=== PATIENT | male | born 1950 | race Two or more races ===

== ENCOUNTER 2017-07-27 15:45 | Inpatient (IN) | payer MEDICARE, MEDICAID ==
[~2017-07-27] VITALS: Ht 170.2 cm; Wt 82.1 kg
--- NOTE | 2017-07-27 15:45 | Emergency Room Report ---
History of Present Illness General Source: Patient, EMS Present Illness HPI Patient is a 67-year-old male sent in by Dr. Cardoso after increased bilateral lower extremity swelling for the past 2 days. The patient gradual onset of symptoms. The patient stays at [facility]. The patient was noted to have prior history of CVA. Patient reports being able to move both lower extremities. He noticed having no increased difficulty breathing. Patient states that he is able to breathe normally. The patient prior history of tracheostomy but this had been removed. The patient also had prior history of G-tube which had been removed. The patient is awake and alert Allergies: Coded Allergies: EPINEPHRINE (Verified Allergy, Mild, 12/23/09) Patient History Past Medical History: see triage record, CVA/TIA, renal disease Past Surgical History: pacemaker Reviewed Nursing Documentation: PMH: Agreed, PSxH: Agreed Review of Systems All Other Systems: negative except mentioned in HPI Physical Exam Sp02 EP Interpretation: reviewed, normal General Appearance: normal inspection, well appearing, no apparent distress, alert, GCS 15 Head: atraumatic ENT: normal ENT inspection, hearing grossly normal, normal voice Neck: normal inspection, full range of motion, supple, no bony tend Respiratory: normal inspection, normal breath sounds, no respiratory distress, no retraction, crackles - bibasilar Cardiovascular #1: regular rate, rhythm Gastrointestinal: normal inspection, normal bowel sounds, non tender, soft, no guarding, no hernia Genitourinary: no CVA tenderness Musculoskeletal: normal inspection, back normal, normal range of motion Neurologic: normal inspection, alert, oriented x3, responsive, yarn weigher III-XII nml as tested, speech normal, motor weakness - bilateral lower extremity, plantar flexed, able to move both legs against gravity, left arm slight weakness Psychiatric: normal inspection, judgement/insight normal, mood/affect normal Skin: normal inspection, other - bilateral pedal edema, Medical Decision Making Diagnostic Impression: Primary Impression: Congestive heart failure (CHF) ER Course Patient presented for lower extremity edema. Differential diagnosis included was not limited to renal failure, allergic reaction, congestive heart failure, deep venous thrombosis among others.Because of complexity of patient's case laboratory testing and imaging studies were ordered.The patient was noted to be in no respiratory distress. Laboratory testing was notable for elevated BNP. Ekg showed paced rhythm without acute ST or T changes. The patient was given IV Lasix. Dr. Colin Calle was contacted for inpatient management due to primary care physician coverage. Labs Test 07/27/17 16:12 White Blood Count 8.8 K/UL (4.8-10.8) Red Blood Count 3.57 M/UL (4.70-6.10) Hemoglobin 10.5 G/DL (14.2-18.0) Hematocrit 32.8 % (42.0-52.0) Mean Corpuscular Volume 92 FL (80-99) Mean Corpuscular Hemoglobin 29.5 PG (27.0-31.0) Mean Corpuscular Hemoglobin Concent 32.1 G/DL (32.0-36.0) Red Cell Distribution Width 11.8 % (11.6-14.8) Platelet Count 227 K/UL (150-450) Mean Platelet Volume 7.4 FL (6.5-10.1) Neutrophils (%) (Auto) 52.5 % (45.0-75.0) Lymphocytes (%) (Auto) 21.3 % (20.0-45.0) Monocytes (%) (Auto) 8.8 % (1.0-10.0) Eosinophils (%) (Auto) 15.8 % (0.0-3.0) Basophils (%) (Auto) 1.6 % (0.0-2.0) Sodium Level 143 MMOL/L (136-145) Potassium Level 4.0 MMOL/L (3.5-5.1) Chloride Level 110 MMOL/L (98-107) Carbon Dioxide Level 25 MMOL/L (21-32) Anion Gap 8 mmol/L (5-15) Blood Urea Nitrogen 17 mg/dL (7-18) Creatinine 0.9 MG/DL (0.55-1.30) Estimat Glomerular Filtration Rate > 60 mL/min (>60) Glucose Level 70 MG/DL (74-106) Calcium Level 8.3 MG/DL (8.5-10.1) EKG Diagnostic Results Rhythm: other - av paced rhythm ST Segments: no acute changes Rhythm Strip Diag. Results EP Interpretation: yes Rhythm: no PVC's, no ectopy, other - paced rhythm Status: unchanged Disposition: ADMITTED INPATIENT Condition: Serious Isaac Moreno Jul 27, 2017 15:45
[2017-07-27 15:53] VITALS: BP 166/76
[2017-07-27 16:26] LABS: BASOPHILS % (AUTO) 1.6 % (0.0-2.0); EOSINOPHILS % (AUTO) 15.8 % (0.0-3.0); LYMPHOCYTES % (AUTO) 21.3 % (20.0-45.0); MEAN CORPUSCULAR HEMOGLOBIN 29.5 PG (27.0-31.0); MEAN CORPUSCULAR HGB CONC 32.1 G/DL (32.0-36.0); MEAN CORPUSCULAR VOLUME 92 FL (80-99); MEAN PLATELET VOLUME 7.4 FL (6.5-10.1); MONOCYTES % (AUTO) 8.8 % (1.0-10.0); NEUTROPHILS % (AUTO) 52.5 % (45.0-75.0); PLATELET COUNT 227 K/UL (150-450); RED BLOOD COUNT 3.57 M/UL (4.70-6.10); RED CELL DISTRIBUTION WIDTH 11.8 % (11.6-14.8); WHITE BLOOD COUNT 8.8 K/UL (4.8-10.8)
[2017-07-27 16:39] LABS: ANION GAP 8 mmol/L (5-15); CALCIUM 8.3 MG/DL (8.5-10.1); CARBON DIOXIDE 25 MMOL/L (21-32); CHLORIDE 110 MMOL/L (98-107); CREATININE 0.9 MG/DL (0.55-1.30); GLOMERULAR FILTRATION RATE > 60 mL/min (>60); SODIUM 143 MMOL/L (136-145)
[2017-07-27 16:50] LABS: ALANINE AMINOTRANSFERASE 17 U/L (12-78); ALBUMIN/GLOBULIN RATIO 0.9 (1.0-2.7); ASPARTATE AMINO TRANSFERASE 14 U/L (15-37); TOTAL PROTEIN 6.1 G/DL (6.4-8.2)
[2017-07-27 16:54] LABS: APPEARANCE,URINE CLEAR; KETONES,URINE NEGATIVE (NEGATIVE); LEUKOCYTE ESTERASE ,URINE 1+ (NEGATIVE); NITRITE,URINE NEGATIVE (NEGATIVE); PH,URINE 5 (4.5-8.0); PROTEIN,URINE NEGATIVE (NEGATIVE); UROBILINOGEN,URINE NORMAL MG/DL (0.0-1.0)
[2017-07-27 17:32] LABS: BACTERIA,URINE FEW /HPF; RBC,URINE 0-2 /HPF (0 - 0); SQUAMOUS EPITHELIAL CELL,UR OCCASIONAL /LPF (NONE/OCC); WBC,URINE 0-2 /HPF (0 - 0)
[2017-07-27] MEDS ORDERED: TYLENOL650 MG/20. ORAL (17:55)
[2017-07-27] MEDS ORDERED: LIPITOR80 MG ORAL (17:57)
[2017-07-27] MEDS ORDERED: CALCIUM 500 +1 EAC7 PO (18:08)
[2017-07-27] MEDS ORDERED: PROSCAR5 MG ORAL (18:09)
[2017-07-27] MEDS ORDERED: MULTIVITAMINS1 EAC8 ORAL (18:10)
[2017-07-27] MEDS ORDERED: TAMSULOSIN HCL0.4 MG ORAL (18:18)
[2017-07-27] MEDS ORDERED: MILK OF MA400 MG/51 ORAL (18:18)
[2017-07-27] MEDS ORDERED: SENNA8.6 M2 PO (18:18)
[2017-07-27 18:40] VITALS: BP 142/77
[2017-07-27] MEDS ORDERED: FAMOTIDINE40 MG ORAL (18:46)
[2017-07-27] MEDS ORDERED: GABAPENTIN100 MG ORAL (18:46)
[2017-07-27] MEDS ORDERED: NORCO 10-325 T1 EACH ORAL (18:46)
[2017-07-27] MEDS ORDERED: AMIODARONE HCL200 MG ORAL (18:46)
[2017-07-27] MEDS ORDERED: ECPIRIN325 M1 PO (18:46)
[2017-07-27] MEDS ORDERED: COZAAR100 MG ORAL (18:46)
[2017-07-27] MEDS ORDERED: NORVASC5 MG ORAL (18:46)
[2017-07-27] MEDS ORDERED: TRADJENTA5 MG PO (18:46)
[2017-07-27] MEDS ORDERED: FLUTICASONE PRO16 G1 NASAL (18:46)
[2017-07-27] MEDS ORDERED: PLAVIX75 MG ORAL (18:46)
[2017-07-27] MEDS ORDERED: LANTUS SOL100 UNIT/1 SUBQ (18:55)
[2017-07-27] MEDS ORDERED: FUROSEMIDE40 MG/4 ML IV (18:55)
[2017-07-27 20:00] VITALS: BP 155/84
[2017-07-27] MEDS: NovoLOG Insulin Flexpen SUBQ SCH (20:53)
[2017-07-27] MEDS ORDERED: Milk of Magnesia 30ml Ud ORAL PRN (22:30)
[2017-07-27] MEDS ORDERED: Tylenol #3 tab (300mg/30mg) ORAL PRN (22:30)
[2017-07-28] MEDS: NovoLOG Insulin Flexpen SUBQ SCH ×4 (06:27→21:00)
[2017-07-28 08:00] VITALS: BP 158/72
[2017-07-28] MEDS: Tamsulosin 0.4mg cap ORAL SCH ×2 (08:28→17:06)
[2017-07-28] MEDS ORDERED: Norco 10mg/325mg tab ORAL PRN (08:30)
[2017-07-28] MEDS: Amiodarone 200mg tab ORAL SCH (08:31)
[2017-07-28] MEDS: Calcium Carbonate 500mg w/Vit D 200iu tab ORAL SCH (08:31)
[2017-07-28] MEDS: Losartan 50mg tab ORAL SCH (08:31)
[2017-07-28] MEDS: Flonase Nasal Inhaler 16gm NASAL SCH ×2 (08:33→17:06)
[2017-07-28] MEDS: Heparin 5000 units/ml inj SUBQ SCH ×2 (08:33→21:00)
[2017-07-28 12:00] VITALS: BP 145/71
--- NOTE | 2017-07-28 15:30 | History and Physical Report ---
DATE OF ADMISSION: 07/27/2017 CHIEF COMPLAINT: Lower extremity edema. HISTORY OF PRESENT ILLNESS: The patient is a 67-year-old male. He has a history of conduction system disease, status post pacemaker, hypertension, congestive heart failure, and diabetes, who was transferred from a shelter facility with complaints of lower extremity edema. According to the patient, he has had two days of worsening lower extremity edema. He states that he has had similar symptoms in the past and it usually responds with elevation of his lower extremities. Denies any fevers or chills. He has had no cough. He does admit to some dietary salt noncompliance, especially with Thanksgiving. Denies any orthopnea or PND. He has no chest pain. On evaluation in the emergency room, the patient was noted to have swollen legs. He also did have elevated troponin. He was therefore admitted for further evaluation and care. PAST MEDICAL HISTORY: As above. PAST SURGICAL HISTORY: None. CURRENT MEDICATIONS: Reconciled and reviewed. ALLERGIES: Epinephrine. SOCIAL HISTORY: There is no known history of tobacco, ethanol, or drugs. FAMILY HISTORY: Noncontributory. REVIEW OF SYSTEMS: GENERAL: No fevers or chills. HEENT: No headaches or visual changes. CARDIOPULMONARY: No chest pain or shortness of breath. GASTROINTESTINAL: No nausea or vomiting. GENITOURINARY: No urgency or frequency. MUSCULOSKELETAL: No joint pain or swelling. NEUROLOGIC: No evidence of seizures. PHYSICAL EXAMINATION: VITAL SIGNS: Temperature 98 degrees, blood pressure 158/72, pulse 62, and respirations 14. GENERAL: The patient is well developed, in no apparent distress. HEART: Regular rate and rhythm. LUNGS: Clear. ABDOMEN: Soft, nontender, and nondistended. There is no jugular venous distention. EXTREMITIES: Without clubbing, cyanosis, or edema. LABORATORY DATA: Sodium 143, potassium was 4, and creatinine was 0.9. Troponin 0.119. Natriuretic peptide level was 3000. UA was clear. White count 8 and hemoglobin was 10. ASSESSMENT: This is a pleasant male, who complaints of lower extremity edema, suspect secondary to venous insufficiency. He also has elevated troponin. He has hypertension and diabetes. PLAN: Repeat troponin. Continue anti-platelet therapy. Discontinue IV Lasix as edema has now improved. If troponin is negative, the patient likely can be discharged home. I suspect if the repeat troponin is elevated, he will need to be kept as an inpatient. He will have an echo and see dental equipment installer and servicer. We will continue outpatient diabetic and cardiac regimen. Colin Calle M.D. DR: Jakub JOB#: [id number] CC:
[2017-07-28 16:00] VITALS: BP 131/67
[2017-07-28 19:28] VITALS: BP 122/70
[2017-07-28] MEDS: Atorvastatin 80mg tab ORAL SCH (21:00)
[2017-07-28] MEDS: Sennosides 8.6mg ORAL SCH (21:00)
[2017-07-28 23:20] VITALS: BP 142/77
[2017-07-29 03:23] VITALS: BP 142/75
[2017-07-29] MEDS: NovoLOG Insulin Flexpen SUBQ SCH ×4 (06:30→21:00)
[2017-07-29 08:28] VITALS: BP 131/70
[2017-07-29] MEDS: Sennosides 8.6mg ORAL SCH (09:00)
[2017-07-29] MEDS: Flonase Nasal Inhaler 16gm NASAL SCH ×2 (09:00→17:25)
[2017-07-29] MEDS: Amiodarone 200mg tab ORAL SCH (09:00)
[2017-07-29] MEDS: Tamsulosin 0.4mg cap ORAL SCH ×2 (09:01→17:25)
[2017-07-29] MEDS: Calcium Carbonate 500mg w/Vit D 200iu tab ORAL SCH (09:01)
[2017-07-29] MEDS: Losartan 50mg tab ORAL SCH (09:02)
[2017-07-29] MEDS: Heparin 5000 units/ml inj SUBQ SCH ×2 (09:03→20:47)
[2017-07-29 12:27] VITALS: BP 159/72
--- NOTE | 2017-07-29 13:01 | General Progress Note ---
Assessment/Plan Problem List: (1) Hypertension ICD Codes: I10 - Essential (primary) hypertension SNOMED: 15598536 (2) AMI (acute myocardial infarction) ICD Codes: I21.9 - Acute myocardial infarction, unspecified SNOMED: 85667077 (3) Venous insufficiency ICD Codes: I87.2 - Venous insufficiency (chronic) (peripheral) SNOMED: 24817407 (4) Congestive heart failure (CHF) ICD Codes: I50.9 - Heart failure, unspecified SNOMED: 41412010 Status: stable, progressing Assessment/Plan po diuretic rx arb antiplt rx cards eval pending Subjective ROS Limited/Unobtainable: No Constitutional: Reports: weakness HEENT: Reports: no symptoms Cardiovascular: Reports: edema Respiratory: Reports: no symptoms Gastrointestinal/Abdominal: Reports: no symptoms Genitourinary: Reports: no symptoms Neurologic/Psychiatric: Reports: no symptoms Endocrine: Reports: no symptoms Hematologic/Lymphatic: Reports: no symptoms Allergies: Coded Allergies: EPINEPHRINE (Verified Allergy, Mild, 12/23/09) All Systems: reviewed and negative except above Subjective no complaints. LE edema better. +trop x 2. denies CP/sob. echo with low ef 45% Objective Last 24 Hour Vital Signs Date Time Temp Pulse Resp B/P (MAP) Pulse Ox O2 Delivery O2 Flow Rate FiO2 07/29/17 12:27 98.1 60 18 159/72 98 Room Air 07/29/17 09:02 131/70 07/29/17 08:28 98.6 69 18 131/70 97 Room Air 07/29/17 08:00 67 07/29/17 04:00 65 07/29/17 03:23 98.3 62 16 142/75 96 Room Air 07/29/17 00:00 66 07/28/17 23:20 98.2 73 16 142/77 96 Room Air 07/28/17 20:00 67 07/28/17 19:28 98.0 71 16 122/70 97 Room Air 07/28/17 16:00 67 07/28/17 16:00 98.2 68 16 131/67 95 Room Air Intake and Output 07/29/17 07/30/17 19:00 07:00 Intake Total 360 ml Output Total 400 ml Balance -40 ml Intake Oral 360 ml Output Urine Total 400 ml # Bowel Movements 1 Height (Feet): 5 Height (Inches): 7.00 Weight (Pounds): 182 General Appearance: WD/WN, alert Neck: supple Cardiovascular: regular rhythm Respiratory/Chest: chest wall non-tender, lungs clear, normal breath sounds, no respiratory distress Abdomen: normal bowel sounds, non tender, soft, no organomegaly, no mass Edema: no edema noted Arm (L), no edema noted Arm (R), no edema noted Leg (L), no edema noted Leg (R), no edema noted Pedal (L), no edema noted Pedal (R), no edema noted Generalized JOÃO LANDEROS Jul 29, 2017 13:01
--- NOTE | 2017-07-29 15:02 | Cardiology Report ---
APPROVED REPORT EXAM: Two-dimensional and M-mode echocardiogram with Doppler and color Doppler. INDICATION Coronary artery disease M-Mode DIMENSIONS IVSd1.3 (0.7-1.1cm)Left Atrium (MM)3.7 (1.6-4.0cm) LVDd4.8 (3.5-5.6cm)Aortic Root2.8 (2.0-3.7cm) PWd1.0 (0.7-1.1cm)Aortic Cusp Exc.1.6 (1.5-2.0cm) LVDs3.7 (2.5-4.0cm) PWs1.2 cm Technically difficult study due to poor parasternal acoustical windows. Study quality precludes accurate assessment of regional wall motion. Normal left ventricular chamber size and fucntion to the exten visulaized Left ventricular ejection fraction estimated to be 50-55%. Mild left ventricular hypertrophy. Anterior Echo-free space, may be due to pericardial fat or effusion. All other cardiac chamber sizes are within normal limits. Focal aortic valve sclerosis with adequate cusp excursion. Thickened mitral valve leaflets with normal excursion. Mild mitral annulus and aortic root calcification. Pulmonic valve not well visualized. Normal tricuspid valve structure. IVC dilated at 2.2 cm and with partial physiologic collapse, estimated RAP is 10 mmHg. A color flow and spectral Doppler study was performed and revealed: No aortic regurgitation. Trace mitral regurgitation. Mitral diastolic velocities suggest reduced left ventricular relaxation c/w mild diastolic dysfunction (Grade I). Mild tricuspid regurgitation. Tricuspid systolic velocities suggests peak right ventricular systolic pressure of 44 mmHg, consistent with mild to moderate pulmonary hypertension. No pulmonic regurgitation present.
--- NOTE | 2017-07-29 15:34 | Cardiology Report ---
APPROVED REPORT EKG Measurement Heart [id number] MI 158P4 [id number] av sequential pacing
[2017-07-29 16:15] VITALS: BP 141/77
--- NOTE | 2017-07-29 17:31 | Cardiology Progress Note ---
Assessment/Plan Assessment/Plan The patient is seen and examined, full consult note is dictated. Objective Last 24 Hour Vital Signs Date Time Temp Pulse Resp B/P (MAP) Pulse Ox O2 Delivery O2 Flow Rate FiO2 07/29/17 16:15 98.6 67 18 141/77 98 Room Air 07/29/17 12:27 98.1 60 18 159/72 98 Room Air 07/29/17 12:00 65 07/29/17 09:02 131/70 07/29/17 08:28 98.6 69 18 131/70 97 Room Air 07/29/17 08:00 67 07/29/17 04:00 65 07/29/17 03:23 98.3 62 16 142/75 96 Room Air 07/29/17 00:00 66 07/28/17 23:20 98.2 73 16 142/77 96 Room Air 07/28/17 20:00 67 07/28/17 19:28 98.0 71 16 122/70 97 Room Air Intake and Output 07/29/17 07/30/17 19:00 07:00 Intake Total 720 ml Output Total 700 ml Balance 20 ml Intake Oral 720 ml Output Urine Total 700 ml # Bowel Movements 1 Microbiology Date/Time Source Procedure Growth Status 07/28/17 01:00 Nasal Nares MRSA Culture - Final Staphylococcus Aureus - Mrsa Complete GILBERT FIELDS Jul 29, 2017 17:31
--- NOTE | 2017-07-29 19:30 | Consultation ---
DATE OF CONSULTATION: 07/29/2017 CARDIOLOGY CONSULTATION CONSULTING PHYSICIAN: Joaquin Leon M.D. REFERRING PHYSICIAN: Colin Calle M.D. ADDITIONAL REFERRING PHYSICIAN: Joaquin Stone M.D. HISTORY OF PRESENT ILLNESS: The patient is an very unfortunate 67-year-old gentleman, who presents to the hospital with increased bilateral lower extremity edema for about two days. The patient claims that he had been taking self a couple days prior to this event. He states that the onset of the symptoms were gradual. He did not have any shortness of breath or chest pain at the time of arrival to the hospital. Initial vital signs were showing blood pressure 166/76 mmHg and heart rate of 62 beats per minute. The patient seen in Cardiology consultation for evaluation of possible acute heart failure, has etiology of bilateral lower extremity edema. His cardiac history is significant for history of dual-chamber pacemaker implantation, Bertha Jansen in Electrophysiology has been consulted for management of pacemaker. His cardiac history, he has history of cerebrovascular accident with left hemiparesis but denies any history of arrhythmias in the past. He denied any prior history of coronary artery disease. PAST MEDICAL HISTORY: 1. CVA with left hemiparesis. 2. History of renal disease. 3. History of respiratory failure status post tracheostomy tube placement and removal. 4. History of dysphagia, status post PEG placement and removal. 5. History of paroxysmal atrial fibrillation on combination of aspirin and Plavix. PAST SURGICAL HISTORY: 1. History of tracheostomy tube placement. 2. History of PEG placement. 3. Dual-chamber pacemaker implantation. MEDICATIONS: List of medications at the nursing facility: 1. Acetaminophen 650 mg q.4 h. p.r.n. headache or temperature above 101. 2. Amiodarone 200 mg p.o. daily. 3. Amlodipine 5 mg p.o. daily. 4. Aspirin 325 mg p.o. daily. 5. Lipitor 20 mg p.o. daily. 6. Calcium carbonate/vitamin D3 one tablet daily. 7. Clopidogrel 75 mg p.o. daily. 8. Famotidine 40 mg p.o. at bedtime. 9. Proscar 5 mg p.o. daily. 10. Fluticasone propionate one spray nasal twice daily. 11. Furosemide 40 mg intravenous daily. 12. Gabapentin 300 mg three times daily. 13. [place] 10/325 one tablet q. 8 h hours p.r.n. pain. 14. Insulin Lantus 34 subcutaneous at bedtime. 15. Tradjenta 5 mg p.o. daily. 16. Cozaar 25 mg p.o. daily. 17. Milk of magnesia 30 mL p.o. daily p.r.n. constipation. 18. Multivitamin one tablet p.o. daily. 19. Senna 8.6 mg p.o. at bedtime. 20. Tamsulosin 0.4 mg twice daily. ALLERGIES: Epinephrine. SOCIAL HISTORY: Resident of [facility]. Denies any current tobacco, alcohol, or illicit drug use. REVIEW OF SYSTEMS: HEENT: Denies any headache, diplopia, or blurred vision. CONSTITUTIONAL: Denies any fever, chills, night sweats, or weight loss. CARDIOVASCULAR: Denies any chest pain, shortness of breath, PND, orthopnea, palpitations, syncope. Complaints of bilateral lower extremity edema. PULMONARY: Denies any cough, hemoptysis, or wheezing. GASTROINTESTINAL: Denies any nausea, vomiting, diarrhea, constipation, abdominal pain, or GI bleed. GENITOURINARY: Denies any hematuria, dysuria, or incontinence. NEUROLOGY: Some weakness in the left side of his body. No recent signs of lateralization. No slurred speech. PHYSICAL EXAMINATION: VITAL SIGNS: Blood pressure was 166/76, respirations 20, pulse of 62, temperature 98.2 degrees Fahrenheit, and O2 saturation 99% on room air. GENERAL: This is a very pleasant 67-year-old gentleman, in no apparent respiratory distress, alert and oriented x4. HEENT: Atraumatic and normocephalic. Anicteric. Pupils are equal, round, and reactive to light and accommodation. Extraocular muscles intact. NECK: JVP less than 5 cm. No carotid bruit. Carotid upstrokes 2+ bilaterally. CARDIOVASCULAR: Normal S1 and S2. Regular rate and rhythm. No murmurs, gallops, or rubs. PMI is at 4th intercostal space in the midclavicular line. LUNGS: Clear to auscultation bilaterally. CHEST: Presence of pacemaker in the left pectoral area. ABDOMEN: Soft, nontender, and nondistended. No hepatosplenomegaly. Positive bowel sounds. EXTREMITIES: No evidence of edema, clubbing, or cyanosis at this time. LABORATORY FINDINGS: Sodium was 143, potassium 4.0, chloride 110, carbon dioxide 25, BUN 17, creatinine 0.9, glucose is 70. Calcium is 8.3. Troponin-I 0.119 and 0.140. ProBNP was 2898. INR is 1.0. WBC 8.8, hemoglobin 10.5, hematocrit 32.8, platelet count is 227. Chest x-ray not available. A 2D echocardiography was reviewed and essentially shows normal left ventricular systolic function with LVEF approximately 55%. There is paradoxical septal wall motion, normal left ventricle wall thickening with paradoxical septal motion due to RV pacing resulting in overall left ventricular ejection fraction approximately 45%. There is mild pulmonary hypertension with right ventricular systolic pressure approximately 45 to 50 mmHg with [id number] diastolic data is significant for A to A reversal with normal E to E prime which is consistent with normal LV diastolic function. Right atrial pressure was also estimated at around 10 mmHg. ASSESSMENT AND PLAN: The patient is a pleasant 67-year-old gentleman, seen in Cardiology consultation at request of Dr. Calle and Bertha. 1. Bilateral lower extremity edema. Despite very high beta natriuretic peptide, I doubt that he has an active heart failure going on. A 2D echocardiography shows relatively normal LV systolic function with normal diastolic function. The patient is asymptomatic with no shortness of breath. I would agree however with the diuretic therapy which has resolved the lower extremity edema at this time. 2. Paroxysmal atrial fibrillation on amiodarone therapy mainly sequential AV pacing with occasional sinus rhythm. I would have Dr. Joaquin Stnoe to assess for anticoagulation and other arrhythmic management. 3. Dual-chamber pacemaker implantation, Dr. Stone, for pacemaker interrogation and function assessment. I would like to thank, Dr. Calle, for the courtesy of this consultation. Joaquin Leon M.D. DR: Keila JOB#: [id number] CC:
[2017-07-29] MEDS: Atorvastatin 80mg tab ORAL SCH (20:46)
[2017-07-29 20:47] VITALS: BP 133/67
[2017-07-30] VITALS: BP 139/67
[2017-07-30 04:00] VITALS: BP 135/74
[2017-07-30] MEDS: NovoLOG Insulin Flexpen SUBQ SCH ×4 (06:18→21:00)
[2017-07-30 08:16] VITALS: BP 148/77
--- NOTE | 2017-07-30 08:42 | General Progress Note ---
Assessment/Plan Problem List: (1) Hypertension ICD Codes: I10 - Essential (primary) hypertension SNOMED: 91619723 (2) AMI (acute myocardial infarction) ICD Codes: I21.9 - Acute myocardial infarction, unspecified SNOMED: 65035670 (3) Venous insufficiency ICD Codes: I87.2 - Venous insufficiency (chronic) (peripheral) SNOMED: 75904086 (4) Congestive heart failure (CHF) ICD Codes: I50.9 - Heart failure, unspecified SNOMED: 69567859 Status: stable, progressing Assessment/Plan po diuretic rx arb antiplt rx cards eval noted ?significance of elevated trop follow up cxr DC if cleared by cards Subjective ROS Limited/Unobtainable: No Constitutional: Reports: malaise, weakness HEENT: Reports: no symptoms Cardiovascular: Reports: edema Respiratory: Reports: no symptoms Gastrointestinal/Abdominal: Reports: no symptoms Genitourinary: Reports: no symptoms Neurologic/Psychiatric: Reports: no symptoms Endocrine: Reports: no symptoms Hematologic/Lymphatic: Reports: no symptoms Allergies: Coded Allergies: EPINEPHRINE (Verified Allergy, Mild, 12/23/09) All Systems: reviewed and negative except above Subjective no new complaints. edema better. echo noted. Objective Last 24 Hour Vital Signs Date Time Temp Pulse Resp B/P (MAP) Pulse Ox O2 Delivery O2 Flow Rate FiO2 07/30/17 08:16 98.4 61 20 148/77 96 07/30/17 04:00 65 07/30/17 04:00 97.9 67 20 135/74 96 Room Air 07/30/17 00:00 64 07/30/17 00:00 97.7 68 20 139/67 96 Room Air 07/29/17 20:47 98.2 62 20 133/67 96 Room Air 07/29/17 20:00 69 07/29/17 16:15 98.6 67 18 141/77 98 Room Air 07/29/17 12:27 98.1 60 18 159/72 98 Room Air 07/29/17 12:00 65 07/29/17 09:02 131/70 Height (Feet): 5 Height (Inches): 7.00 Weight (Pounds): 182 General Appearance: WD/WN, alert Neck: supple Cardiovascular: normal rate, regular rhythm Respiratory/Chest: chest wall non-tender, lungs clear, normal breath sounds Abdomen: normal bowel sounds, non tender, soft, no organomegaly Edema: no edema noted Arm (L), no edema noted Arm (R), no edema noted Leg (L), no edema noted Leg (R), no edema noted Pedal (L), no edema noted Pedal (R), no edema noted Generalized JOÃO LANDEROS Jul 30, 2017 08:42
[2017-07-30] MEDS: Flonase Nasal Inhaler 16gm NASAL SCH ×2 (09:04→18:02)
[2017-07-30] MEDS: Tamsulosin 0.4mg cap ORAL SCH ×2 (09:05→18:02)
[2017-07-30] MEDS: Calcium Carbonate 500mg w/Vit D 200iu tab ORAL SCH (09:05)
[2017-07-30] MEDS: Losartan 50mg tab ORAL SCH (09:06)
[2017-07-30] MEDS: Sennosides 8.6mg ORAL SCH (09:07)
[2017-07-30] MEDS: Amiodarone 200mg tab ORAL SCH (09:07)
[2017-07-30] MEDS: Heparin 5000 units/ml inj SUBQ SCH ×2 (09:08→21:01)
[2017-07-30 11:43] VITALS: BP 146/73
--- NOTE | 2017-07-30 15:10 | Diagnostic Imaging Report ---
Indication: SOB Technique: One view of the chest Comparison: 06/05/2005 Findings: Previously demonstrated tracheostomy is no longer evident. There is a left chest biventricular AICD present. The lungs and pleural spaces are clear. Heart size is upper limits of normal. Impression: No acute process
[2017-07-30 15:32] VITALS: BP 144/73
--- NOTE | 2017-07-30 18:52 | Cardiology Progress Note ---
Assessment/Plan Assessment/Plan 1. Bilateral lower extremity edema, resolved, continue the diuretics. Normal LV systolic and diastolic function except septal wall motion due to paced RV. 2. Paroxysmal atrial fibrillation on amiodarone therapy, sequential AV pacing with occasional sinus rhythm, continue amiodarone, ? antiocoag therapy. 3. Dual-chamber pacemaker implantation, appears to be functioning normally. Subjective Subjective Sinus rhythm at 62. No chest pain or SOB reported. Objective Last 24 Hour Vital Signs Date Time Temp Pulse Resp B/P (MAP) Pulse Ox O2 Delivery O2 Flow Rate FiO2 07/30/17 16:00 67 07/30/17 15:32 97.9 62 20 144/73 98 07/30/17 12:00 62 07/30/17 11:43 96.9 65 20 146/73 95 07/30/17 09:06 148/77 07/30/17 08:16 98.4 61 20 148/77 96 07/30/17 08:00 75 07/30/17 04:00 65 07/30/17 04:00 97.9 67 20 135/74 96 Room Air 07/30/17 00:00 64 07/30/17 00:00 97.7 68 20 139/67 96 Room Air 07/29/17 20:47 98.2 62 20 133/67 96 Room Air 07/29/17 20:00 69 Intake and Output 07/30/17 07/31/17 19:00 07:00 Intake Total 840 ml Output Total 700 ml Balance 140 ml Intake Oral 840 ml Output Urine Total 700 ml 2D Echo: LVEF 45%, paradoxical septal WM due to paced RV, RVSP 44, Grade I LVDD Microbiology Date/Time Source Procedure Growth Status 07/28/17 01:00 Nasal Nares MRSA Culture - Final Staphylococcus Aureus - Mrsa Complete 07/28/17 01:00 Rectum VRE Culture - Final NO VANCOMYCIN RESISTANT ENTEROCOCCUS ... Complete Objective HEENT: Atraumatic and normocephalic. Anicteric. Pupils are equal, round, and reactive to light and accommodation. Extraocular muscles intact. NECK: JVP less than 5 cm. No carotid bruit. Carotid upstrokes 2+ bilaterally. CARDIOVASCULAR: Normal S1 and S2. Regular rate and rhythm. No murmurs, gallops, or rubs. PMI is at 4th intercostal space in the midclavicular line. LUNGS: Clear to auscultation bilaterally. CHEST: Presence of pacemaker in the left pectoral area. ABDOMEN: Soft, nontender, and nondistended. No hepatosplenomegaly. Positive bowel sounds. EXTREMITIES: No evidence of edema, clubbing, or cyanosis at this time. GILBERT FIELDS Jul 30, 2017 18:52
[2017-07-30 20:00] VITALS: BP 147/68
[2017-07-30] MEDS: Atorvastatin 80mg tab ORAL SCH (20:57)
[2017-07-31] VITALS (7 sets, daily range): BP systolic 115–153; BP diastolic 60–82
[2017-07-31] MEDS: NovoLOG Insulin Flexpen SUBQ SCH ×4 (06:30→21:00)
[2017-07-31] MEDS ORDERED: FUROSEMIDE20 M1 ORAL (08:59)
[2017-07-31] MEDS: Flonase Nasal Inhaler 16gm NASAL SCH ×2 (09:28→17:31)
[2017-07-31] MEDS: Calcium Carbonate 500mg w/Vit D 200iu tab ORAL SCH (09:29)
[2017-07-31] MEDS: Tamsulosin 0.4mg cap ORAL SCH ×2 (09:29→17:30)
[2017-07-31] MEDS: Losartan 50mg tab ORAL SCH (09:30)
[2017-07-31] MEDS: Heparin 5000 units/ml inj SUBQ SCH ×2 (09:32→22:45)
[2017-07-31] MEDS: Sennosides 8.6mg ORAL SCH (09:34)
[2017-07-31] MEDS: Amiodarone 200mg tab ORAL SCH (09:37)
--- NOTE | 2017-07-31 09:57 | Cardiac Electrophysiology PN ---
Subjective Subjective EP consult dictated. Will interrogate [employer] ICD. Objective Last 24 Hour Vital Signs Date Time Temp Pulse Resp B/P (MAP) Pulse Ox O2 Delivery O2 Flow Rate FiO2 07/31/17 09:30 153/82 07/31/17 08:25 97.5 64 18 153/82 95 07/31/17 08:00 97.5 64 20 153/64 95 Room Air 07/31/17 04:07 76 07/31/17 03:36 97.7 67 16 140/76 96 Room Air 07/31/17 00:20 97.9 63 18 147/73 98 Room Air 07/31/17 00:00 65 07/30/17 20:18 60 07/30/17 20:00 97.9 63 18 147/68 100 Room Air 07/30/17 16:00 67 07/30/17 15:32 97.9 62 20 144/73 98 07/30/17 12:00 62 07/30/17 11:43 96.9 65 20 146/73 95 Intake and Output 07/31/17 08/01/17 19:00 07:00 Intake Total 120 ml Balance 120 ml Intake Oral 120 ml # Bowel Movements 1 GILBERT SIMMONS Jul 31, 2017 09:57
[2017-07-31 11:15] LABS: BASOPHILS % (AUTO) 2.2 % (0.0-2.0); MEAN CORPUSCULAR HEMOGLOBIN 29.7 PG (27.0-31.0); MEAN CORPUSCULAR HGB CONC 32.6 G/DL (32.0-36.0); MEAN CORPUSCULAR VOLUME 91 FL (80-99); MEAN PLATELET VOLUME 8.5 FL (6.5-10.1); NEUTROPHILS % (AUTO) 60.8 % (45.0-75.0); PLATELET COUNT 242 K/UL (150-450); RED BLOOD COUNT 3.91 M/UL (4.70-6.10); RED CELL DISTRIBUTION WIDTH 11.8 % (11.6-14.8); WHITE BLOOD COUNT 6.7 K/UL (4.8-10.8)
[2017-07-31 11:43] LABS: ANION GAP 10 mmol/L (5-15); CALCIUM 8.3 MG/DL (8.5-10.1); CARBON DIOXIDE 24 MMOL/L (21-32); CHLORIDE 107 MMOL/L (98-107); CREATININE 1.1 MG/DL (0.55-1.30); GLOMERULAR FILTRATION RATE > 60 mL/min (>60); POTASSIUM 4.1 MMOL/L (3.5-5.1); SODIUM 141 MMOL/L (136-145)
[2017-07-31] MEDS ORDERED: Lexiscan 0.4mg/5ml syringe IV ONE (13:00)
--- NOTE | 2017-07-31 15:45 | Cardiology Progress Note ---
Assessment/Plan Assessment/Plan 1. Bilateral lower extremity edema, resolved, continue the diuretics. Normal LV systolic and diastolic function except septal wall motion due to paced RV. 2. Paroxysmal atrial fibrillation on amiodarone therapy, sequential AV pacing with occasional sinus rhythm, continue amiodarone, ? antiocoag therapy. 3. Dual-chamber pacemaker implantation, appears to be functioning normally. Subjective Subjective Sinus rhythm at 62. No chest pain or SOB reported. Objective Last 24 Hour Vital Signs Date Time Temp Pulse Resp B/P (MAP) Pulse Ox O2 Delivery O2 Flow Rate FiO2 07/31/17 12:00 66 07/31/17 11:35 98.1 64 18 137/76 95 07/31/17 09:30 153/82 07/31/17 08:25 97.5 64 18 153/82 95 07/31/17 08:00 76 07/31/17 08:00 97.5 64 20 153/64 95 Room Air 07/31/17 04:07 76 07/31/17 03:36 97.7 67 16 140/76 96 Room Air 07/31/17 00:20 97.9 63 18 147/73 98 Room Air 07/31/17 00:00 65 07/30/17 20:18 60 07/30/17 20:00 97.9 63 18 147/68 100 Room Air 07/30/17 16:00 67 Intake and Output 07/31/17 08/01/17 19:00 07:00 Intake Total 600 ml Output Total 110 ml Balance 490 ml Intake Oral 600 ml Output Urine Total 110 ml # Voids 1 # Bowel Movements 1 Laboratory Tests Test 07/31/17 10:40 White Blood Count 6.7 K/UL (4.8-10.8) Red Blood Count 3.91 M/UL (4.70-6.10) L Hemoglobin 11.6 G/DL (14.2-18.0) L Hematocrit 35.6 % (42.0-52.0) L Mean Corpuscular Volume 91 FL (80-99) Mean Corpuscular Hemoglobin 29.7 PG (27.0-31.0) Mean Corpuscular Hemoglobin Concent 32.6 G/DL (32.0-36.0) Red Cell Distribution Width 11.8 % (11.6-14.8) Platelet Count 242 K/UL (150-450) Mean Platelet Volume 8.5 FL (6.5-10.1) Neutrophils (%) (Auto) 60.8 % (45.0-75.0) Lymphocytes (%) (Auto) 22.0 % (20.0-45.0) Monocytes (%) (Auto) 7.0 % (1.0-10.0) Eosinophils (%) (Auto) 8.0 % (0.0-3.0) H Basophils (%) (Auto) 2.2 % (0.0-2.0) H Sodium Level 141 MMOL/L (136-145) Potassium Level 4.1 MMOL/L (3.5-5.1) Chloride Level 107 MMOL/L (98-107) Carbon Dioxide Level 24 MMOL/L (21-32) Anion Gap 10 mmol/L (5-15) Blood Urea Nitrogen 10 mg/dL (7-18) Creatinine 1.1 MG/DL (0.55-1.30) Estimat Glomerular Filtration Rate > 60 mL/min (>60) Glucose Level 175 MG/DL (74-106) H Calcium Level 8.3 MG/DL (8.5-10.1) L Troponin I 0.126 ng/mL (0.000-0.056) Objective HEENT: Atraumatic and normocephalic. Anicteric. Pupils are equal, round, and reactive to light and accommodation. Extraocular muscles intact. NECK: JVP less than 5 cm. No carotid bruit. Carotid upstrokes 2+ bilaterally. CARDIOVASCULAR: Normal S1 and S2. Regular rate and rhythm. No murmurs, gallops, or rubs. PMI is at 4th intercostal space in the midclavicular line. LUNGS: Clear to auscultation bilaterally. CHEST: Presence of pacemaker in the left pectoral area. ABDOMEN: Soft, nontender, and nondistended. No hepatosplenomegaly. Positive bowel sounds. EXTREMITIES: No evidence of edema, clubbing, or cyanosis at this time. GILBERT FIELDS Jul 31, 2017 15:45
--- NOTE | 2017-07-31 17:30 | Consultation ---
DATE OF CONSULTATION: 07/31/2017 CARDIAC ELECTROPHYSIOLOGY CONSULTATION CONSULTING PHYSICIAN: Joaquin Stone M.D. REFERRING PHYSICIAN: Colin Calle M.D. REASON FOR CONSULTATION: Management of atrial fibrillation and the patient's pacemaker. HISTORY OF PRESENT ILLNESS: The patient is a 67-year-old gentleman with history of hypertension and congestive heart failure with history of defibrillator implantation in the past as well as defibrillator generator change couple of years ago by Dr. Caceres. The patient was admitted with left bilateral lower extremity edema. The patient also has history of CVA with left-sided hemiparesis. Cardiac electrophysiology consultation was obtained for further evaluation. REVIEW OF SYSTEMS: Review of systems was performed and was negative other than what was mentioned in the history of present illness. PAST MEDICAL HISTORY: 1. Hypertension. 2. Paroxysmal atrial fibrillation. 3. History of congestive heart failure. 4. History of defibrillator implantation and generator change. 5. History of respiratory failure, status post tracheostomy tube placement and removal. 6. CVA with left hemiparesis. 7. Chronic kidney disease. 8. Dysphagia, status post PEG placement and removal. PAST SURGICAL HISTORY: 1. History of PEG placement and removal. 2. History of tracheostomy placement and removal. 3. Dual-chamber defibrillator implantation. MEDICATIONS: Per reconciliation, but includes amiodarone, aspirin, amlodipine, Lipitor, Plavix, insulin, Cozaar, and Flomax. ALLERGIES: He is allergic to epinephrine. SOCIAL HISTORY: He lives at [facility]. Does not smoke or drink alcohol. PHYSICAL EXAMINATION: VITAL SIGNS: Blood pressure is 152/82, pulse 64, respirations 18, and temperature 97.5 degrees. HEAD AND NECK: Shows no JVD. LUNGS: Clear. CARDIOVASCULAR: Shows regular S1 and S2 with no gallop or murmur. Defibrillator in the left subclavian with two incisions. ABDOMEN: Soft. EXTREMITIES: No pitting edema. LABORATORY AND DIAGNOSTIC DATA: Labs show white count of 8.8, hemoglobin 10.5, hematocrit 32.9, and platelets 227. Sodium 143, potassium 4.0, BUN of 17 and creatinine of 0.9, and glucose of 70. Troponin is 0.119 and 0.140. His BNP is 2898. ASSESSMENT/PLAN: 1. Status post defibrillator implantation. The patient does not know the brand of the defibrillator. His echocardiogram, however, showed ejection fraction of 55%. We will [facility] to [facility] and try to get the brand of the patient's defibrillator for interrogation. Based on the chest x-ray, it may be biventricular defibrillator implantation or dual-chamber defibrillator . 2. Paroxysmal atrial fibrillation. The interrogation of the defibrillator atrial fibrillation. Currently in atrially paced rhythm. The patient is already on amiodarone, aspirin, and Plavix. 3. Troponin leak. We will schedule the patient for nuclear stress test for further evaluation. The patient is on aspirin, Plavix, and Lipitor. The patient was evaluated by Dr. Leon. 4. Hypertension. Thank you very much, Dr. Calle, for allowing me to participate in the care of this patient. Please do not hesitate to contact me if you have any questions regarding my evaluation. Joaquin Stone M.D. DR: CAROLINE JOB#: [id number] CC:
--- NOTE | 2017-07-31 18:30 | Discharge Summary ---
DATE OF ADMISSION: 07/27/2017 DATE OF DISCHARGE: 07/31/2017 ADMISSION DIAGNOSES: 1. Congestive heart failure exacerbation. 2. Elevated troponin. 3. History of atrial fibrillation. 4. History of pacemaker. 5. Hypertension. 6. Benign prostatic hypertrophy. DISCHARGE DIAGNOSES: 1. Congestive heart failure exacerbation. 2. Elevated troponin. 3. History of atrial fibrillation. 4. History of pacemaker. 5. Hypertension. 6. Benign prostatic hypertrophy. HOSPITAL COURSE: The patient is a pleasant male admitted with complaints of lower extremity edema. He was diagnosed with congestive heart failure exacerbation. He received IV Lasix. He did have a borderline elevated troponin. He had an echocardiogram that showed normal LV function. The edema resolved with intravenous diuretic therapy. On discharge, the patient was stable. He will be discharged back to the senior care facility. He will follow up with his PMD there. DISCHARGE MEDICATIONS: Please see discharge medication list for discharge medications. DIET: Cardiac diet. ACTIVITY: Ad-lennox. FOLLOWUP: The patient will follow up by his PMD in one to two days at the senior care facility. Colin Calle M.D. DR: LAVERNE JOB#: [id number] CC:
--- NOTE | 2017-07-31 18:53 | Cardiology Progress Note ---
Assessment/Plan Assessment/Plan 1. Bilateral lower extremity edema, resolved, continue the diuretics. Normal LV systolic and diastolic function except septal wall motion due to paced RV. 2. Paroxysmal atrial fibrillation on amiodarone therapy, sequential AV pacing with occasional sinus rhythm, continue amiodarone, ? antiocoag therapy at discretion of Dr. Stone. 3. Bi-ventricular pacemaker/AICD, managed by Dr. Stone. Subjective Subjective Sequential AV paced at 60. No chest pain or SOB reported. Objective Last 24 Hour Vital Signs Date Time Temp Pulse Resp B/P (MAP) Pulse Ox O2 Delivery O2 Flow Rate FiO2 07/31/17 16:04 98.2 62 20 128/67 95 07/31/17 16:00 63 07/31/17 12:00 66 07/31/17 11:35 98.1 64 18 137/76 95 07/31/17 09:30 153/82 07/31/17 08:25 97.5 64 18 153/82 95 07/31/17 08:00 76 07/31/17 08:00 97.5 64 20 153/64 95 Room Air 07/31/17 04:07 76 07/31/17 03:36 97.7 67 16 140/76 96 Room Air 07/31/17 00:20 97.9 63 18 147/73 98 Room Air 07/31/17 00:00 65 07/30/17 20:18 60 07/30/17 20:00 97.9 63 18 147/68 100 Room Air Intake and Output 07/31/17 08/01/17 19:00 07:00 Intake Total 720 ml Output Total 810 ml Balance -90 ml Intake Oral 720 ml Output Urine Total 810 ml # Voids 1 # Bowel Movements 3 2D Echo: LVEF 45%, paradoxical septal WM due to paced RV, RVSP 44, Grade I LVDD Laboratory Tests Test 07/31/17 10:40 White Blood Count 6.7 K/UL (4.8-10.8) Red Blood Count 3.91 M/UL (4.70-6.10) L Hemoglobin 11.6 G/DL (14.2-18.0) L Hematocrit 35.6 % (42.0-52.0) L Mean Corpuscular Volume 91 FL (80-99) Mean Corpuscular Hemoglobin 29.7 PG (27.0-31.0) Mean Corpuscular Hemoglobin Concent 32.6 G/DL (32.0-36.0) Red Cell Distribution Width 11.8 % (11.6-14.8) Platelet Count 242 K/UL (150-450) Mean Platelet Volume 8.5 FL (6.5-10.1) Neutrophils (%) (Auto) 60.8 % (45.0-75.0) Lymphocytes (%) (Auto) 22.0 % (20.0-45.0) Monocytes (%) (Auto) 7.0 % (1.0-10.0) Eosinophils (%) (Auto) 8.0 % (0.0-3.0) H Basophils (%) (Auto) 2.2 % (0.0-2.0) H Sodium Level 141 MMOL/L (136-145) Potassium Level 4.1 MMOL/L (3.5-5.1) Chloride Level 107 MMOL/L (98-107) Carbon Dioxide Level 24 MMOL/L (21-32) Anion Gap 10 mmol/L (5-15) Blood Urea Nitrogen 10 mg/dL (7-18) Creatinine 1.1 MG/DL (0.55-1.30) Estimat Glomerular Filtration Rate > 60 mL/min (>60) Glucose Level 175 MG/DL (74-106) H Calcium Level 8.3 MG/DL (8.5-10.1) L Troponin I 0.126 ng/mL (0.000-0.056) Objective HEENT: Atraumatic and normocephalic. Anicteric. Pupils are equal, round, and reactive to light and accommodation. Extraocular muscles intact. NECK: JVP less than 5 cm. No carotid bruit. Carotid upstrokes 2+ bilaterally. CARDIOVASCULAR: Normal S1 and S2. Regular rate and rhythm. No murmurs, gallops, or rubs. PMI is at 4th intercostal space in the midclavicular line. LUNGS: Clear to auscultation bilaterally. CHEST: Presence of pacemaker in the left pectoral area. ABDOMEN: Soft, nontender, and nondistended. No hepatosplenomegaly. Positive bowel sounds. EXTREMITIES: No evidence of edema, clubbing, or cyanosis at this time. GILBERT FIELDS Jul 31, 2017 18:53
[2017-07-31] MEDS: Atorvastatin 80mg tab ORAL SCH (22:40)
[2017-08-01] VITALS: BP 139/91
[2017-08-01 04:00] VITALS: BP 122/91
[2017-08-01] MEDS: NovoLOG Insulin Flexpen SUBQ SCH ×3 (06:13→16:30)
[2017-08-01 08:18] VITALS: BP 136/71
--- NOTE | 2017-08-01 08:31 | General Progress Note ---
Assessment/Plan Problem List: (1) Hypertension ICD Codes: I10 - Essential (primary) hypertension SNOMED: 90432106 (2) AMI (acute myocardial infarction) ICD Codes: I21.9 - Acute myocardial infarction, unspecified SNOMED: 60549230 (3) Venous insufficiency ICD Codes: I87.2 - Venous insufficiency (chronic) (peripheral) SNOMED: 94743255 (4) Congestive heart failure (CHF) ICD Codes: I50.9 - Heart failure, unspecified SNOMED: 21205250 Status: stable, progressing Assessment/Plan po diuretic rx arb antiplt rx cards eval noted stress test and pacer interrogation today dc if above negative Subjective ROS Limited/Unobtainable: No Constitutional: Reports: no symptoms HEENT: Reports: no symptoms Cardiovascular: Reports: no symptoms Respiratory: Reports: no symptoms Gastrointestinal/Abdominal: Reports: no symptoms Genitourinary: Reports: no symptoms Neurologic/Psychiatric: Reports: no symptoms Endocrine: Reports: no symptoms Hematologic/Lymphatic: Reports: no symptoms Allergies: Coded Allergies: EPINEPHRINE (Verified Allergy, Mild, 12/23/09) All Systems: reviewed and negative except above Subjective no new complaints. edema better. echo noted. d/w Dr jean. stress test and pacer maker interrogation recommended before discharge Objective Last 24 Hour Vital Signs Date Time Temp Pulse Resp B/P (MAP) Pulse Ox O2 Delivery O2 Flow Rate FiO2 08/01/17 08:18 97.9 72 20 136/71 96 08/01/17 04:00 63 08/01/17 04:00 98.2 72 20 122/91 98 Room Air 08/01/17 00:00 98.2 75 20 139/91 95 Room Air 08/01/17 00:00 69 07/31/17 20:00 97.9 64 20 115/60 97 Room Air 07/31/17 20:00 62 07/31/17 16:04 98.2 62 20 128/67 95 07/31/17 16:00 63 07/31/17 12:00 66 07/31/17 11:35 98.1 64 18 137/76 95 07/31/17 09:30 153/82 Intake and Output 08/01/17 08/02/17 19:00 07:00 Intake Total 240 ml Balance 240 ml Intake Oral 240 ml Laboratory Tests 07/31/17 10:40: White Blood Count 6.7, Red Blood Count 3.91L, Hemoglobin 11.6L, Hematocrit 35.6L , Mean Corpuscular Volume 91, Mean Corpuscular Hemoglobin 29.7, Mean Corpuscular Hemoglobin Concent 32.6, Red Cell Distribution Width 11.8, Platelet Count 242, Mean Platelet Volume 8.5, Neutrophils (%) (Auto) 60.8, Lymphocytes (% ) (Auto) 22.0, Monocytes (%) (Auto) 7.0, Eosinophils (%) (Auto) 8.0H, Basophils (%) (Auto) 2.2H, Sodium Level 141, Potassium Level 4.1, Chloride Level 107, Carbon Dioxide Level 24, Anion Gap 10, Blood Urea Nitrogen 10, Creatinine 1.1, Estimat Glomerular Filtration Rate > 60, Glucose Level 175H, Calcium Level 8.3L , Troponin I 0.126H Height (Feet): 5 Height (Inches): 7.00 Weight (Pounds): 181 General Appearance: WD/WN, alert Cardiovascular: normal rate, regular rhythm Respiratory/Chest: chest wall non-tender, lungs clear, normal breath sounds, no respiratory distress, no accessory muscle use Abdomen: normal bowel sounds, non tender, soft, no organomegaly Edema: no edema noted Arm (L), no edema noted Arm (R), no edema noted Leg (L), no edema noted Leg (R), no edema noted Pedal (L), no edema noted Pedal (R), no edema noted Generalized JOÃO LANDEROS Aug 01, 2017 08:31
[2017-08-01] MEDS: Flonase Nasal Inhaler 16gm NASAL SCH ×2 (09:12→18:13)
[2017-08-01] MEDS: Sennosides 8.6mg ORAL SCH (09:12)
[2017-08-01] MEDS: Amiodarone 200mg tab ORAL SCH (09:13)
[2017-08-01] MEDS: Calcium Carbonate 500mg w/Vit D 200iu tab ORAL SCH (09:13)
[2017-08-01] MEDS: Tamsulosin 0.4mg cap ORAL SCH ×2 (09:13→18:13)
[2017-08-01] MEDS: Losartan 50mg tab ORAL SCH (09:14)
[2017-08-01] MEDS: Heparin 5000 units/ml inj SUBQ SCH (09:15)
[2017-08-01 11:44] VITALS: BP 137/74
--- NOTE | 2017-08-01 14:09 | Cardiac Electrophysiology PN ---
Assessment/Plan Assessment/Plan 1. Status post Biotronic Biventricular defibrillator implantation.Has no LV lead ? Interrogation today showed Nl Fx.Echo LVEF 55%. 2. Paroxysmal atrial fibrillation. Currently in atrially paced rhythm on amiodarone, aspirin, and Plavix. 3. Troponin leak. Nuclear stress test today per Dr Leon. Continue on aspirin, Plavix, and Lipitor. 4. Hypertension.Cozaar 100 and LAsix 20 daily. CARIDAD RN Subjective Subjective Biotronic ICD interrogated and showed Nl fx.Awaiting nuclear stress test today. Objective Last 24 Hour Vital Signs Date Time Temp Pulse Resp B/P (MAP) Pulse Ox O2 Delivery O2 Flow Rate FiO2 08/01/17 12:00 60 08/01/17 11:44 98.1 72 20 137/74 98 Room Air 08/01/17 09:14 136/71 08/01/17 08:18 97.9 72 20 136/71 96 08/01/17 08:00 65 08/01/17 04:00 63 08/01/17 04:00 98.2 72 20 122/91 98 Room Air 08/01/17 00:00 98.2 75 20 139/91 95 Room Air 08/01/17 00:00 69 07/31/17 20:00 97.9 64 20 115/60 97 Room Air 07/31/17 20:00 62 07/31/17 16:04 98.2 62 20 128/67 95 07/31/17 16:00 63 Intake and Output 08/01/17 08/02/17 19:00 07:00 Intake Total 240 ml Output Total 400 ml Balance -160 ml Intake Oral 240 ml Output Urine Total 400 ml Objective HEAD AND NECK: Shows no JVD. LUNGS: Clear. CARDIOVASCULAR: Shows regular S1 and S2 with no gallop or murmur. Defibrillator in the left subclavian with two incisions. ABDOMEN: Soft. EXTREMITIES: No pitting edema. GILBERT SIMMONS Aug 01, 2017 14:09
[2017-08-01 15:24] VITALS: BP 130/64
[2017-08-01] MEDS ORDERED: Lexiscan 0.4mg/5ml syringe IV ONE (16:00)
--- NOTE | 2017-08-01 17:16 | Diagnostic Imaging Report ---
Indications: Chest pain, pacemaker Technique: Single day single isotope protocol utilized. Initially, resting images obtained using IV administration 10.9 millicuries 99M technetium Myoview. Subsequently, patient underwent adenosine stress testing. See cardiology report for details. During adenosine infusion, IV administration 30.6 mCi 99 M technetium Myoview. SPECT and planar images obtained. SPECT images gated to 8 phases of the cardiac cycle were also obtained, and reformatted into cine images for evaluation of ejection fraction. Comparison: None Findings: Cardiology report does not describe the presence or absence of symptoms during infusion. Per cardiology report, resting EKG demonstrates paced rhythm with left bundle branch block. This renders the EKG findings during infusion nondiagnostic. Imaging demonstrates the questionable perfusion defect in the anteroseptal wall and apex which is unchanged on the resting images. Apical and inferior wall defect seen only on the resting images, on the stress images is probably artifactual. Normal cardiac chamber size.. Calculated post stress ejection fraction 64%. No focal wall motion abnormality demonstrated Impression: Nonischemic clinical response to pharmacologic stress, per cardiology report Nonischemic electrocardiographic response to pharmacologic stress, per cardiology report Questionable fixed anteroseptal perfusion defect, suspect artifactual but if real could represent a small infarct. Inferior perfusion defect on the resting images only is probably artifactual. No evidence of ischemia, at level of stress achieved Calculated post stress ejection fraction 64%
--- NOTE | 2017-08-02 08:12 | Discharge Summary ---
Discharge Summary Hospital Course Date of Admission Jul 27, 2017 at 16:55 Date of Discharge Aug 01, 2017 at 19:27 Admitting Diagnosis chf, pedal edema, pacemaker HPI Caio Doe is a 67 year old male who was admitted on Jul 27, 2017 at 16: 55 for Congestive Heart Failure, Pedal Edema Procedures Addendum: Discharge for 07/31/17 was cancelled. Patient not cleared by cardio. Myocardial perfusion scan was ordered. He underwent stress test the following day, results were non-ischemic, he was eventually discharged to SNF. -- I have been assigned to complete a DC summary on this account, I was not involved in the management.--Anurag Butts NP. Discharge Discharge Disposition Patient was discharged to [facility] (04) Discharge Diagnoses: Tonya Butts NP Aug 02, 2017 08:12
--- NOTE | 2017-08-03 08:09 | Physician Query ---
PLEASE COMPLETE THE DOCUMENT BEFORE SIGNING Dear Dr. LANDEROS Date: 08/03/17 General Supervisor/CDS Name: ABBI ASH, CCS Exercise your independent professional judgment when responding to query. Question asked do not imply a particular answer is desired/expected Clinical Documentation States: "Heart Failure / CHF" documented in DISCHARGE DIAGNOSES: 1. Congestive heart failure exacerbation. HOSPITAL COURSE: The patient is a pleasant male admitted with complaints of lower extremity edema. He was diagnosed with congestive heart failure exacerbation. He received IV Lasix. Clinical Findings Show: BNP: 2898 Pt. with Hx Hypertension: (X) YES Normal LV systolic and diastolic function except septal wall motion due to paced RV. 2D Echo: LVEF 45%, paradoxical septal WM due to paced RV, RVSP 44, Grade I LVDD Please Clarify CHF: Acuity: [] Acute [] Chronic [] Acute on Chronic Type: [] Systolic [] Diastolic [] Systolic & Diastolic (Combined) [] Left Heart failure [] Other: Etiology: [] CHF due to Hypertension [] Cardiomyopathy [] Valvular Heart Disease [] Coronary Artery Disease [] Unable to determine [] Other: Please also document in your Progress Notes and/or Discharge Summary and indicate if the condition was present on admission. JOÃO LANDEROS M.D. DATE & TIME [facility]
== END 2017-08-01 19:27 | DRG 291 ==
LOC: EDBD 15:45 → EMR 16:42 → 2E 16:55 → EDBEDREQ 17:17
PROC: 4B02XSZ Measurement of Cardiac Pacemaker, External Approach (ICD-10-PCS; principal; 2017-08-01)
DX: I13.0 Hypertensive heart and chronic kidney disease with heart failure and stage 1 through stage 4 chronic kidney disease, or unspecified chronic kidney disease (principal); I50.23 Acute on chronic systolic (congestive) heart failure; E11.22 Type 2 diabetes mellitus with diabetic chronic kidney disease; I69.354 Hemiplegia and hemiparesis following cerebral infarction affecting left non-dominant side; I48.0 Paroxysmal atrial fibrillation; I87.2 Venous insufficiency (chronic) (peripheral); N18.9 Chronic kidney disease, unspecified; Z91.11 Patient's noncompliance with dietary regimen; Z79.02 Long term (current) use of antithrombotics/antiplatelets; Z79.82 Long term (current) use of aspirin; Z79.4 Long term (current) use of insulin; Z95.810 Presence of automatic (implantable) cardiac defibrillator
CPT/HCPCS: 36415; 71010; 78452; 80048; 80053; 81001; 82962; 83880; 84484; 85025; 85379; 85610; 85730; 87081; 93005; 93017; 93306; 99285; J1815; J2785